=== PATIENT | female | born 1980 | race Hispanic/Latino ===

== ENCOUNTER 2018-12-28 16:04 | Outpatient (CLI) | payer OTHER ==
--- NOTE | 2018-12-28 16:52 | ULT ---
Obstetric sonogram HISTORY: Second trimester gestation. ablation. FINDINGS: Single intrauterine gestation in breech presentation. Cervix is closed and 4.3 cm. Amniotic fluid is within normal limits. Grade 0 placenta is posterior. No gross intracranial abnormalities are evident. spine and kidneys are intact as visualized. Four-chamber heart motion at 139 bpm. Three-vessel cord shows a normal insertion. spine and kidneys intact as visualized. Measurements are as follows: Biparietal diameter 24 weeks 5 days. Head circumference 24 weeks 6 days. Abdominal circumference 25 weeks 1 day. Femur length 24 weeks 0 days. Hadlock 89 percentile. IMPRESSION: Single viable intrauterine gestation without abnormalities demonstrated. Estimated gestat ional age based on today's sonogram 24 weeks 5 days.
== END 2018-12-28 16:05 | disposition home or self-care (01) ==
LOC: ULT 16:04
PROVIDERS: ATTEND Nurse Practitioner
DX: O09.92 Supervision of high risk pregnancy, unspecified, second trimester (principal); Z3A.24 24 weeks gestation of pregnancy
CPT/HCPCS: 76805